=== PATIENT | female | born 1990 ===

== ENCOUNTER 2021-11-18 08:49 | Emergency (ER) | payer SELFPAY ==
[2021-11-18] MEDS ORDERED: SODIUM CHLORIDE 0.9% 1000 ML 1,000 ML IV ONE (09:05)
[2021-11-18 10:54] VITALS: BP 141/79
--- NOTE | 2021-11-18 11:06 | Emergency Department Report ---
ED General Adult HPI - General Chief complaint: Urogenital-Female Stated complaint: 14WEEKS LEAKING FLUID Time Seen by Provider: 11/18/21 08:59 Source: EMS Mode of arrival: Ambulatory Limitations: No Limitations - History of Present Illness Initial comments: pt reports leaking amniotic fluid x 4 days, pt has hx of previous labor, also reports back pain pt is at 17 weeks had fluids leaking for the last 4 days , o bleeding -: days(s) (4) Severity scale (0 -10): 0 Associated Symptoms: denies: denies other symptoms, confusion, chest pain, cough, diaphoresis Treatments Prior to Arrival: none - Related Data Allergies Allergy/AdvReac Type Severity Reaction Status Date / Time No Known Allergies Allergy Unverified 11/18/21 08:57 ED Review of Systems ROS: Stated complaint: 14WEEKS LEAKING FLUID Other details as noted in HPI Constitutional: denies: chills, fever Eyes: denies: eye pain, eye discharge, vision change ENT: denies: ear pain, throat pain Respiratory: denies: cough, shortness of breath, wheezing Cardiovascular: denies: chest pain, palpitations Endocrine: no symptoms reported Gastrointestinal: denies: abdominal pain, nausea, diarrhea Genitourinary: denies: urgency, dysuria, discharge Musculoskeletal: denies: back pain, joint swelling, arthralgia Skin: denies: rash, lesions Neurological: denies: headache, weakness, paresthesias Psychiatric: denies: anxiety, depression Hematological/Lymphatic: denies: easy bleeding, easy bruising ED Past Medical Hx - Past Medical History Previous Medical History?: Yes Hx Asthma: Yes - Surgical History Additional Surgical History: C/S - Social History Smoking Status: Unknown if ever smoked Substance Use Type: None ED Physical Exam - General Limitations: No Limitations General appearance: alert, in no apparent distress - Head Head exam: Present: atraumatic, normocephalic - Eye Eye exam: Present: normal appearance - ENT ENT exam: Present: mucous membranes moist - Neck Neck exam: Present: normal inspection - Respiratory Respiratory exam: Present: normal lung sounds bilaterally. Absent: respiratory distress - Cardiovascular Cardiovascular Exam: Present: regular rate, normal rhythm. Absent: systolic murmur, diastolic murmur, rubs, gallop - GI/Abdominal GI/Abdominal exam: Present: soft, normal bowel sounds - Extremities Exam Extremities exam: Present: normal inspection - Back Exam Back exam: Present: normal inspection - Neurological Exam Neurological exam: Present: alert, oriented X3 - Psychiatric Psychiatric exam: Present: normal affect, normal mood - Skin Skin exam: Present: warm, dry, intact, normal color. Absent: rash ED Course Vital Signs 11/18/21 11/18/21 11/18/21 08:54 09:22 10:54 Temperature 98.1 F 98.1 F 98.1 F Pulse Rate 95 H 78 86 Respiratory 16 16 20 Rate Blood Pressure 93/68 Blood Pressure 122/79 141/79 [Left] O2 Sat by Pulse 99 98 97 Oximetry ED Medical Decision Making - Radiology Data Radiology results: report reviewed, image reviewed - Medical Decision Making US showed normal TODD and normal IUP , pt eloped before we get nitrazine and litmus paper , Critical care attestation.: If time is entered above; I have spent that time in minutes in the direct care of this critically ill patient, excluding procedure time. ED Disposition Clinical Impression: Leakage, amniotic fluid Disposition: 07 LEFT AWOL/ELOPED Is pt being admited?: No Does the pt Need Aspirin: No Condition: Stable Instructions: Premature Rupture and Premature Rupture of Membranes Referrals: PRIMARY CARE, [Primary Care Provider] - 3-5 Days
--- NOTE | 2021-11-18 13:46 | Ultrasound Report ---
ULTRASOUND OBSTETRIC LIMITED INDICATION / CLINICAL INFORMATION: VIABILITY. TECHNIQUE: Transabdominal ultrasound imaging. COMPARISON: None available. FINDINGS: HEART RATE (beats per minute): 149 AMNIOTIC FLUID INDEX (cm) = TODD was not measured but qualitative amniotic fluid volume appears nikki l. PRESENTATION: Cephalic. ADDITIONAL FINDINGS: The cervix is closed and measures 3.6 cm in length. IMPRESSION: No significant abnormality. Signer Name: Rubens Dukes Jr, MD Signed: 11/18/2021 1:42 PM Workstation Name: [id number]
== END 2021-11-18 12:36 | disposition left against medical advice (07) ==
LOC: ED 08:49
DX: O88.119 Amniotic fluid embolism in pregnancy, unspecified trimester (principal); J45.909 Unspecified asthma, uncomplicated
CPT/HCPCS: 76815; 99283